=== PATIENT | female | born 1965 | race Caucasian/White ===

== ENCOUNTER 2024-01-19 14:16 | Emergency (ER) | payer BC, SELFPAY ==
--- NOTE | ~2024-01-19 | XR_ITS ---
EXAMINATION: XR knee RT 3V DATE: 01/19/2024 16:09 INDICATION: Right knee pain post fall TECHNIQUE: Anteroposterior, sunrise and crosstable lateral views of the right knee were obtained COMPARISON: None. FINDINGS: Alignment is normal. No fracture. Joint space appear normal on nonweightbearing imaging. Enthesophyt e at the proximal pole of the patella. No joint effusion/layering lipohemarthrosis. Soft tissues are unremarkable. IMPRESSION: 1. No right knee joint effusion or acute osseous adenopathy. Reviewed, dictated and finalized at location A.
--- NOTE | ~2024-01-19 | XR_ITS ---
EXAMINATION: XR pelvis 1-2V, XR sacroiliac joints min 3V DATE: 01/19/2024 16:09 INDICATION: Pelvic pain post fall TECHNIQUE: 1. An anteroposterior view of the pelvis was obtained. 2. AP and left and right oblique views of the sacroiliac joints were obtained. COMPARISON: None. FINDINGS: Bone alignment is normal. No fracture. Polyarticular osteoarthritis, mild at the bilateral hip and sa cral iliac joints and moderate to severe at the lower lumbar facet joints. There are a few phlebolith s in the pelvis. IMPRESSION: 1. No acute osseous abnormality. Reviewed, dictated and finalized at location A. IMPRESSION: 1. No acute osseous abnormality.
[2024-01-19 14:25] VITALS: BP 120/91; PULSE 101; RESP 16; TEMP 36.8; O2SAT 98
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
--- NOTE | 2024-01-19 15:45 | PC.NURSE ---
PT IS SITTING IN CHAIR IN EXAM ROOM AWAITING XRAY RESULTS. NAD NOTED. DENIES ANY NEEDS OR COMPLAINTS AT THIS TIME.
[2024-01-19 16:40] VITALS: PULSE 92; RESP 18; O2SAT 98
== END 2024-01-19 16:40 | disposition home or self-care (01) ==
PROVIDERS: Emergency Provider Nurse Practitioner Family
DX: M54.16 Radiculopathy, lumbar region (principal); M25.561 Pain in right knee; E78.00 Pure hypercholesterolemia, unspecified; I10 Essential (primary) hypertension; F41.9 Anxiety disorder, unspecified; F90.9 Attention-deficit hyperactivity disorder, unspecified type
CPT/HCPCS: 72170; 72202; 73562; 99214; G0463

== ENCOUNTER 2025-02-22 11:19 | Emergency (ER) | payer BC, SELFPAY ==
--- NOTE | ~2025-02-22 | XR_ITS ---
Examination: XR chest 2V Clinical History: sob chest heavy, SOB x 2 days, cant get deep breathe Comparison: None Technique: PA and Lateral Findings: Cardiomediastinal silhouette normal size and configuration. Lungs clear. No acute bony abnormality. IMPRESSION: 1. No acute cardiopulmonary findings. Reviewed, dictated and finalized at location R.
[2025-02-22 11:28] VITALS: BP 105/81; PULSE 89; RESP 16; TEMP 36.3; O2SAT 99
--- NOTE | 2025-02-22 11:28 | ECG_ITS ---
Test Date: 2025-02-22 11:32:47 Measurements Intervals [place] Rate: 89 P: 69 VA: 129 QRS: 76 QRSD: 93 T: 74 QT: 367 QTc: 449 Interpretive Statements SINUS RHYTHM NORMAL ELECTROCARDIOGRAM No previous ECG available for comparison Electronically Signed On 02-22-2025 16:33:19 CDT by Roly Gonzalez M.D.
--- NOTE | 2025-02-22 11:36 | ED.DIZZY ---
HPI - Dizziness General Chief Complaint: Dizziness Stated Complaint: CHEST HEAVY/HEADACHE/SOB/LIGHT HEADED Time Seen by Provider: 02/22/25 11:36 Source: patient Mode of arrival: ambulatory Limitations: no limitations History of Present Illness HPI Narrative: 59 y/o female presented for c/o head pressure and chest heaviness. Onset yesterday. Endorses dizziness, worse with exertion. Says it feels like 'elephant is on the chest.' Denies associated chest pains, cough, wheezing, palpitations, nausea/vomiting, diaphoresis, fever/chills. Related Data Home Medications ?Medication ?Instructions ?Recorded ?Confirmed ?Last Taken ?Type amlodipine 5 mg tablet 5 mg PO DAILY 01/19/24 02/24/24 Unknown History buspirone 10 mg tablet 10 mg PO DAILY 01/19/24 02/24/24 Unknown History dextroamphetamine-amphetamine 30 30 mg PO DAILY 01/19/24 02/24/24 Unknown History mg tablet lamotrigine 100 mg tablet 50 mg PO DAILY 01/19/24 02/24/24 Unknown History fluoxetine 60 mg tablet mg 02/22/25 Unknown History ibuprofen 800 mg tablet mg 02/22/25 Unknown History Allergies Allergy/AdvReac Type Severity Reaction Status Date / Time losartan AdvReac Intermediate Other Verified 02/22/25 11:36 morphine AdvReac Vomiting Verified 02/22/25 11:36 Review of Systems Review of Systems: CONSTITUTIONAL: Denies body aches, fever, chills, or sweats. EYES: Denies visual changes, redness, or discharge. ENT: Denies rhinorrhea, congestion, sore throat, or otalgia. CARDIOVASCULAR: Denies chest pain, palpitations, or edema. RESPIRATORY: Reports chest heaviness denies cough, sob, wheezing. GASTROINTESTINAL: Denies abdominal pain, nausea, vomiting, or diarrhea. SKIN: Denies rash MUSCULOSKELETAL: Denies back pain, joint pain, or myalgia. NEUROLOGIC: reports headache, dizziness All systems reviewed & are unremarkable except as noted in HPI and below PMFSH Past Medical History Medical History ADHD Hypertension IBS (irritable bowel syndrome) Family History Family History Other Diabetes mellitus Family history of arthritis Social History Social History (Updated 02/24/24 @ 09:18 by Paola Ralph [facility]) Smoking status: Never smoker Second hand tobacco smoke exposure: Yes Alcohol intake: current Substance use: current Substance use type: marijuana Do You Feel Safe in your Home?: Yes Lack of Transportation: No Lack of Food: Never True Current Housing: I Have Housing Concerned About Future Housing: No Difficulty Paying Gas/Electric Bills: No Difficulty Paying for Meds: No Currently Unemployed: No Education: Associate Degree Difficulty w/ Childcare or Family Care: No Living arrangements: with family Occupation/Education: occupation 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 Gender identity (if verbalized by the patient): Female Comments At time of signature, I have reviewed and agree with nursing past medical, surgical, social and family history unless otherwise noted. Please see nursing chart for further information. There is no relevant family history pertinent to the presenting complaint Exam Narrative: GENERAL: Well-appearing EYES: EOMI. No redness or drainage. Conjunctivae normal. ENT: Mucous membranes pink and moist. No rhinorrhea. NECK: Normal AROM. CHEST: No respiratory distress. Lungs clear to all munoz. HEART: Regular rate and rhythm. No murmur appreciated. ABDOMEN: Soft, nontender, nondistended, normal active bowel sounds. SKIN: Warm, dry, no rash. Capillary refill normal. Normal skin turgor. NEURO: Alert and oriented x3. Gait steady. PSYCH: Normal affect. Course Course Emergency Course: Patient is aware of diagnosis, understands and agrees to treatment plan. Anticipatory guidance given. Patient agrees to follow-up as directed and is aware of reasons to seek care at the emergency department. Portions of this record may have been created with voice recognition software Level of Care: Express Care Visit Vital Signs Vital signs: Vital Signs Temperature 97.4 F L 02/22/25 11:28 Pulse Rate 89 02/22/25 11:28 Respiratory Rate 16 02/22/25 11:28 Blood Pressure 105/81 02/22/25 11:28 Pulse Oximetry 99 02/22/25 11:28 Oxygen Delivery Room Air 02/22/25 11:28 Temperature 97.4 F L 02/22/25 11:28 Pulse Rate 89 02/22/25 11:28 Respiratory Rate 16 02/22/25 11:28 Blood Pressure 105/81 02/22/25 11:28 Pulse Oximetry 99 02/22/25 11:28 Oxygen Delivery Room Air 02/22/25 11:28 MDM - Dizziness MDM Narrative Medical decision making narrative: Pt with reports of chest heaviness. Discussed physical exam findings and EKG, NSR. Neg flu, covid Pt is advised to go to the ER for c/o elephant on chest. Pt states she will not be going to the ER, but will go to her PCP's office for the labwork. She was again advised ER for prompt treatment. Agreeable to sign AMA. Differential Diagnosis Differential diagnosis: Likely benign paroxysmal positional vertigo, orthostatic hypotension, vertebral basilar insufficiency, cerebrovascular accident, acute vestibular neuronitis and transient cerebral ischemia Imaging Data Radiologist's impression: Patient: Ama Kirby : 1965 MR#: [id number] Age: 59 Acct:[id number] Loc: [facility] ADM Date: 02/22/25Attending Dr: Examination: XR chest 2V Clinical History: sob chest heavy, SOB x 2 days, cant get deep breathe Comparison: None Technique: PA and Lateral Findings: Cardiomediastinal silhouette normal size and configuration. Lungs clear. No acute bony abnormality. IMPRESSION: 1. No acute cardiopulmonary findings. ECG Data EKG #1: Attestation: I personally reviewed and interpreted this ECG as follows: (NSR 89 CO 129 QRS 93 QT/QTC 367/414) ECG completion date: 02/22/25 ECG completion time: 11:32 Prior ECG tracings: not available for review EKG Interpretation: normal rate and sinus rhythm Discharge Plan Discharge Clinical Impression: Dizziness Patient Disposition: Left Against Medical Advice Condition: Stable Patient Language: Peruvian Prescriptions: No Action amlodipine 5 mg tablet 5 mg PO DAILY dextroamphetamine-amphetamine 30 mg tablet 30 mg PO DAILY buspirone 10 mg tablet 10 mg PO DAILY lamotrigine 100 mg tablet 50 mg PO DAILY ibuprofen 800 mg tablet fluoxetine 60 mg tablet Follow-up/Referrals: Agueda,Florecita Rosales, INSURANCE SALES AGENT [Primary Care Provider, Unknown] Time of Disposition: 12:08
[2025-02-22 12:00] LABS: EDCOVIDSCREEN Negative (Negative); EDINFLUASCREEN Negative (Negative); EDINFLUBSCREEN Negative (Negative)
== END 2025-02-22 12:11 | disposition left against medical advice (07) ==
PROVIDERS: Emergency Provider Nurse Practitioner Family
DX: R42 Dizziness and giddiness (principal); Z20.822 Contact with and (suspected) exposure to COVID-19; I10 Essential (primary) hypertension; F90.9 Attention-deficit hyperactivity disorder, unspecified type
CPT/HCPCS: 71046; 87426; 87804; 93005; 99213; G0463